=== PATIENT | female | born 1990 | race Caucasian/White ===

== ENCOUNTER 2018-08-21 02:24 | Emergency (ER) | payer OTHER ==
[2018-08-21 02:32] VITALS: BP 109/55
[2018-08-21] MEDS ORDERED: ACETAMINOPHEN 500 MG TABLET PO STA (03:12)
[2018-08-21] MEDS ORDERED: AMOXICILLIN 250 MG CAPSULE PO STA (03:12)
[2018-08-21] MEDS ORDERED: diphenhydrAMINE 25 MG CAPSULE PO STA (03:12)
--- NOTE | 2018-08-21 03:13 | ED Physician Documentation ---
PD HPI HEENT - Stated complaint Stated Complaint: DENTAL PAIN - Chief complaint Chief Complaint: Heent - History obtained from History obtained from: Patient - History of Present Illness Timing - onset: Today Timing - details: Gradual onset Location: Tooth Improves: Nothing Associated symptoms: Fever. No: Congestion, Rhinorrhea, Trismus, Unable to swallow, Swollen nodes - Additional information Additional information: 28-year-old female presents the emergency department with right upper tooth pain. The patient was seen by her dentist today and a drainage was performed. The patient was prescribed antibiotics but was told not to start until tomorrow. The patient awoke this morning with ongoing pain and irritation of her face. The patient reports a temperature of 100.0 at home. No difficulty opening her mouth or swallowing. No other associated symptoms. No relieving factors. Review of Systems Constitutional: reports: Chills. denies: Fatigue Eyes: denies: Discharge Ears: denies: Drainage/discharge Nose: denies: Rhinorrhea / runny nose Throat: reports: Dental pain / toothache GI: denies: Abdominal Pain : denies: Dysuria, Vaginal bleeding PD PAST MEDICAL HISTORY - Past Surgical History Past Surgical History: No - Present Medications Home Medications: Ambulatory Orders Medication Instructions Recorded Confirmed Levothyroxine [Synthroid] 300 mcg ORAL DAILY 04/13/17 04/13/17 Amoxicillin 250 mg PO TID 08/21/18 08/21/18 - Allergies Allergies/Adverse Reactions: Allergies Allergy/AdvReac Type Severity Reaction Status Date / Time No Known Drug Allergies Allergy Verified 08/21/18 02:30 - Social History Does the pt smoke?: No Smoking Status: Never smoker Does the pt drink ETOH?: No Does the pt have substance abuse?: No - Immunizations Immunizations are current?: Yes - POLST Patient has POLST: No PD ED PE NORMAL - General General: Alert and oriented X 3, No acute distress - HEENT HEENT: Atraumatic, PERRL, EOMI, Ears normal - Cardiac Cardiac: RRR - Respiratory Respiratory: No respiratory distress - Derm Derm: Normal color - Neuro Neuro: Alert and oriented X 3, Normal speech - Psych Psych: Normal mood PD ED PE EXPANDED - HEENT HEENT Visual: 1 - tenderness (The patient has gingival inflammation, there is no large abscess, The patient has no trismus, the floor the mouth is soft and moist, the tongue is within normal limits, the uvula is midline and nonedematous, there is no swelling of the posterior pharynx.) 2 - tenderness (The patient has facial tenderness, there is no swelling of the face or cellulitis of the face) Results - Vitals Vitals: Vital Signs - 24 hr 08/21/18 02:28 Temperature 36.2 C L Heart Rate 99 Respiratory 16 Rate Blood Pressure 109/55 L O2 Saturation 98 Oxygen O2 Source Room air PD MEDICAL DECISION MAKING - ED course ED course: The patient is currently 22 weeks , the patient has no complaints regarding her . Since the patient's I recommended Tylenol to help manage her pain. I also recommended starting the antibiotics now. There is no evidence of sepsis and the patient appears appropriate for discharge and ongoing outpatient management. I discussed the findings and plan with the patient who understands and agrees. I discussed warning signs and recommended returning to the emergency department immediately for any worsening or any concerns. Departure - Departure Disposition: 01 Home, Self Care Clinical Impression: Dental infection Condition: Good Instructions: ED Tooth Pain Comments: Please follow-up with the dentist as scheduled for further management of your dental infection. Please take your antibiotics as prescribed by the dentist. Please return to the emergency department for worsening symptoms or any concerns.
== END 2018-08-21 03:40 | disposition home or self-care (01) ==
LOC: ED 02:24
DX: O99.89 Other specified diseases and conditions complicating pregnancy, childbirth and the puerperium (principal); K04.7 Periapical abscess without sinus
CPT/HCPCS: 99282; 99283; A9270

== ENCOUNTER 2018-12-09 08:56 | Emergency (ER) | payer OTHER ==
[2018-12-09 09:04] VITALS: BP 133/73
--- NOTE | 2018-12-09 10:19 | ED Physician Documentation ---
PD HPI HEENT - Stated complaint Stated Complaint: EYE REDNESS - Chief complaint Chief Complaint: Heent - History obtained from History obtained from: Patient, Family - History of Present Illness Timing - onset: How many weeks ago (2) Timing - duration: Weeks (2) Timing - details: Gradual onset, Still present, Waxing and waning Location: Sinuses, Other (eye drainage) Associated symptoms: Congestion, Rhinorrhea, Facial swelling, Cough. No: Fever Similar symptoms before: Diagnosis (conjunctivitis) Recently seen: Clinic - Additional information Additional information: 28-year-old female who is 38 weeks has developed a cough and congestion over the past 2 weeks. She states that at first this seemed like a routine cold and seemed to be getting better and then got worse. She has a lot of nasal con gestion she is coughing up some yellow and green phlegm and she is now developed drainage from both of her eyes. She has swelling and redness to the eyes. She denies any contractions or pains. Review of Systems Constitutional: denies: Fever, Chills, Myalgias Eyes: denies: Decreased vision Ears: denies: Ear pain Nose: reports: Rhinorrhea / runny nose, Congestion Throat: denies: Sore throat Cardiac: denies: Chest pain / pressure, Palpitations Respiratory: reports: Cough. denies: Dyspnea GI: reports: Abdominal Swelling, Vomiting. denies: Nausea : denies: Dysuria, Frequency Skin: denies: Rash Musculoskeletal: denies: Neck pain, Back pain, Extremity pain Neurologic: denies: Generalized weakness, Focal weakness, Numbness PD PAST MEDICAL HISTORY - Past Surgical History Past Surgical History: No - Present Medications Home Medications: Ambulatory Orders Medication Instructions Recorded Confirmed Levothyroxine [Synthroid] 300 mcg ORAL DAILY 04/13/17 04/13/17 Amox/Clav 875/125 [Augmentin] 1 each PO Q12H #14 tablet 12/09/18 Neomycin/Poly/Dex Ophth Drops 1 drops EACHEYE QID #1 bottle 12/09/18 [Maxitrol Ophth Drops] - Allergies Allergies/Adverse Reactions: Allergies Allergy/AdvReac Type Severity Reaction Status Date / Time No Known Drug Allergies Allergy Verified 12/09/18 09:04 - Social History Does the pt smoke?: No Smoking Status: Never smoker Does the pt drink ETOH?: No Does the pt have substance abuse?: No - Immunizations Immunizations are current?: Yes - POLST Patient has POLST: No PD ED PE NORMAL - Vitals Vital signs reviewed: Yes (hypertensive mild ) - General General: Alert and oriented X 3, No acute distress, Well developed/nourished - HEENT HEENT: Atraumatic, PERRL, EOMI, Pharynx benign, Other (The left TM has minimal inflamation with retained landmarks the right is clear. The conjunctiva are mildly inflamed with thick yellow drainage. There is no maxillary or frontal sinus point tenderness. ) - Neck Neck: Supple, no meningeal sign, No bony TTP - Cardiac Cardiac: RRR, No murmur - Respiratory Respiratory: No respiratory distress, Clear bilaterally - Abdomen Abdomen: Soft, Non tender, Other (gravid uterus to the xyphoid non-tender. ) - Back Back: No CVA TTP, No spinal TTP - Derm Derm: Normal color, Warm and dry, No rash - Extremities Extremities: No deformity, No edema - Neuro Neuro: Alert and oriented X 3, oil treater 2-12 intact, No motor deficit, No sensory deficit, Normal speech Eye Opening: Spontaneous Motor: Obeys Commands Verbal: Oriented GCS Score: 15 - Psych Psych: Normal mood, Normal affect Results - Vitals Vitals: Vital Signs - 24 hr 12/09/ 09:02 Temperature 36.3 C L Heart Rate 85 Respiratory 18 Rate Blood Pressure 133/73 H O2 Saturation 98 Oxygen O2 Source Room air Procedures - Bedside sono Bedside sono by EMP: With the use of bedside ultrasound the fetus is imaged there is normal movement and the heart rate is clocked at 144 . PD MEDICAL DECISION MAKING - ED course Complexity details: considered differential, d/w patient, d/w family ED course: 28-year-old female with cough and congestion productive of yellow and green phlegm and a bimodal fashion from what appeared to be a routine viral URI now appears to have some sinus infection and crusting in her eyes. She is monitored in the obstetrical unit for her which appears reassuring and we will place her on a short course of antibiotic and have her use some eyedrops for several days. Departure - Departure Disposition: 01 Home, Self Care Clinical Impression: Sinusitis Qualifiers: Sinusitis location: unspecified location Chronicity: acute Recurrence: not specified as recurrent Qualified Code(s): J01.90 - Acute sinusitis, unspecified Conjunctivitis Qualifiers: Conjunctivitis type: acute Acute conjunctivitis type: bacterial Laterality: bilateral Qualified Code(s): H10.33 - Unspecified acute conjunctivitis, bilate ral Condition: Stable Instructions: ED Conjunctivitis Bacterial, ED Sinusitis Abx Tx Follow-Up: MARCIA BUCK [Primary Care Provider] - Prescriptions: Amox/Clav 875/125 [Augmentin] 1 each PO Q12H #14 tablet Neomycin/Poly/Dex Ophth Drops [Maxitrol Ophth Drops] 1 drops EACHEYE QID #1 bottle
== END 2018-12-09 11:37 | disposition home or self-care (01) ==
LOC: ED 08:56
DX: O99.519 Diseases of the respiratory system complicating pregnancy, unspecified trimester (principal); J01.90 Acute sinusitis, unspecified; O99.89 Other specified diseases and conditions complicating pregnancy, childbirth and the puerperium; H10.33 Unspecified acute conjunctivitis, bilateral; Z3A.00 Weeks of gestation of pregnancy not specified
CPT/HCPCS: 99283

== ENCOUNTER 2019-09-23 11:38 | Outpatient (CLI) | payer OTHER | END 2019-09-23 11:39 | disposition home or self-care (01) | LOC: LAB 11:38 | PROVIDERS: ATTEND Obstetrics & Gynecology | DX: Z32.01 Encounter for pregnancy test, result positive (principal) | CPT/HCPCS: 36415; 84702 ==